=== PATIENT | female | born 1965 | race Caucasian/White ===

== ENCOUNTER 2020-10-13 11:53 | Emergency (ER) | payer BC ==
[2020-10-13 12:12] VITALS: BP 177/84; PULSE 59
--- NOTE | 2020-10-13 12:26 | EDM.PDOC ---
ED HPI GENERAL MEDICAL PROBLEM - General Chief Complaint: Cardiovascular Problem Stated Complaint: HIGH BLOOD PRESSURE SENT BY PHARMACY Time Seen by Provider: 10/13/20 12:25 Source of Information: Reports: Patient, RN, RN Notes Reviewed History Limitations: Reports: No Limitations - History of Present Illness INITIAL COMMENTS - FREE TEXT/NARRATIVE: Pt sent from pharmacy with c/o high blood pressure. Pt states she hasn't felt well for several days and has been taking Dimenhydrinate because her ears have felt plugged, and she feels postnasal drip. Admits to occasional brief pa lpitations during the past week. She denies chest pain, headache, visual changes, N/V, or cough. Onset: Gradual Duration: Day(s): (4), Constant Location: Reports: Head, Generalized Quality: Reports: Other (Denies pain) Severity: Moderate Improves with: Reports: None Worsens with: Reports: None Associated Symptoms: Reports: No Other Symptoms - Related Data Allergies Allergy/AdvReac Type Severity Reaction Status Date / Time Penicillins Allergy Difficulty Verified 10/13/20 12:12 Breathing Home Meds: Home Meds Losartan/Hydrochlorothiazide [Losartan-HCTZ 100-25 MG] 1 tab PO DAILY 12/23/14 [History] Aspirin 40.5 mg PO DAILY 10/13/20 [History] Multivitamin [Multi-Day Vitamins] 1 tab PO DAILY 10/13/20 [History] Past Medical History HEENT History: Reports: None Cardiovascular History: Reports: Hypertension Respiratory History: Reports: None Gastrointestinal History: Reports: None Genitourinary History: Reports: None LIEUTENANT/DEPUTY History: Reports: None Musculoskeletal History: Reports: RA Neurological History: Reports: None Psychiatric History: Reports: None Endocrine/Metabolic History: Reports: None Hematologic History: Reports: None Immunologic History: Reports: None Oncologic (Cancer) History: Reports: None Dermatologic History: Reports: None - Infectious Disease History Infectious Disease History: Reports: Chicken Pox, Mumps - Past Surgical History Head Surgeries/Procedures: Reports: None Female Surgical History: Reports: Hysterectomy Social & Family History - Tobacco Use Tobacco Use Status *Q: Never Tobacco User Second Hand Smoke Exposure: No - Caffeine Use Caffeine Use: Reports: Coffee - Recreational Drug Use Recreational Drug Use: No - Living Situation & Occupation Living situation: Reports: , with Family ED ROS GENERAL - Review of Systems Review Of Systems: Comprehensive ROS is negative, except as noted in HPI. ED EXAM, GENERAL - Physical Exam Exam: See Below Exam Limited By: No Limitations General Appearance: Alert, WD/WN, No Apparent Distress Eye Exam: Bilateral Eye: Normal Inspection Ears: Normal External Exam, Normal Canal, Hearing Grossly Normal, Other (TMs dull and retracted, no erythema, no perf, no drainage.) Nose: No Blood, Other (Mild inflammation of inferior turbinates and nasal mucosa) Throat/Mouth: Normal Lips, Normal Teeth, Normal Gums, Normal Voice, No Airway Compromise, Other (Clear postnasal drip) Head: Atraumatic, Normocephalic Neck: Normal Inspection, Supple, Non-Tender, Full Range of Motion. No: Lymphadenopathy (L), Lymphadenopathy (R) Respiratory/Chest: No Respiratory Distress, Lungs Clear, Normal Breath Sounds, No Accessory Muscle Use, Chest Non-Tender Cardiovascular: Normal Peripheral Pulses, Regular Rate, Rhythm, No Edema, Extra Beats Extremities: Normal Inspection, Non-Tender, No Pedal Edema Neurological: Alert, Oriented, CN II-XII Intact, Normal Cognition, Normal Gait, No Motor/Sensory Deficits Psychiatric: Normal Mood Skin Exam: Warm, Dry, Intact, Normal Color, No Rash #1 Interpretation EKG Date: 10/13/20 Time: 12:47 Rhythm: Other (SR with multiple PVCs) Rate (Beats/Min): 78 [place]: LAD-Left [place] Deviation P-Wave: Present QRS: Normal ST-T: Other (Borderline flat T waves laterally) Course - Vital Signs Last Recorded V/S: Last Vital Signs Temp 95.8 F L 10/13/20 12:03 Pulse 59 L 10/13/20 12:03 Resp 16 10/13/20 12:03 BP 177/84 H 10/13/20 12:03 Pulse Ox 100 10/13/20 12:03 - Orders/Labs/Meds Orders: Active Orders 24 hr Category Date Time Status EKG 12 Lead [EKG Documentation Completion] [RC] STAT Care 10/13/20 12:26 Active Labs: Laboratory Tests 10/13/20 10/13/20 Range/Units 12:34 12:34 WBC 7.0 (5.0-10.0) 10^3/uL RBC 4.67 (4.2-5.4) 10^6/uL Hgb 14.2 (12.0-16.0) g/dL Hct 42.2 (37.0-47.0) % MCV 90.4 (80-100) fL MCH 30.4 (27.0-34.0) pg MCHC 33.6 (33.0-35.0) g/dL Plt Count 207 (150-450) 10^3/uL Neut % (Auto) 51.1 (42.2-75.2) % Lymph % (Auto) 39.2 (20.5-50.1) % Evangeline % (Auto) 8.0 (2-8) % Eos % (Auto) 1.4 (1.0-3.0) % Baso % (Auto) 0.3 (0.0-1.0) % Sodium 137 (136-145) mmol/L Potassium 4.2 (3.5-5.1) mmol/L Chloride 98 (98-107) mmol/L Carbon Dioxide 32 (21-32) mmol/L Anion Gap 11.2 (7-13) mEq/L BUN 13 (7-18) mg/dL Creatinine 0.67 (0.55-1.02) mg/dL Est Cr Clr Drug Dosing 95.70 mL/min Estimated GFR (MDRD) > 60 BUN/Creatinine Ratio 19.4 (No establ ref range) Glucose 98 (74-99) mg/dL Calcium 9.0 (8.5-10.1) mg/dL Total Bilirubin 0.7 (0.2-1.0) mg/dL AST 14 L (15-37) U/L ALT 24 (14-59) U/L Alkaline Phosphatase 73 (46-116) U/L Total Protein 8.0 (6.4-8.2) g/dL Albumin 4.3 (3.4-5.0) g/dL Globulin 3.7 Albumin/Globulin Ratio 1.2 TSH, Ultra Sensitive 1.02 (0.36-3.74) uIU/mL Departure - Departure Time of Disposition: 13:13 Disposition: Home, Self-Care 01 Clinical Impression: Frequent PVCs, Palpitations Hypertension Qualifiers: Hypertension type: essential hypertension Qualified Code(s): I10 - Essential (primary) hypertension Eustachian tube dysfunction Qualifiers: Laterality: bilateral Qualified Code(s): H69.83 - Other specified disorders of Eustachian tube, bilateral Instructions: Premature Ventricular Contraction, Palpitations, Eustachian Tube Dysfunction, Hypertension, Adult Forms: ED Department Discharge Additional Instructions: Discontinue the over the counter medication. Follow up in clinic and discuss medication to prevent the symptomatic PVCs. Sepsis Event Note (ED) - Evaluation Sepsis Screening Result: No Definite Risk - Focused Exam Vital Signs: Vital Signs Temp Pulse Resp BP Pulse Ox 10/13/20 12:03 95.8 F L 59 L 16 177/84 H 100 - My Orders Last 24 Hours: My Active Orders 10/13/20 12:26 EKG 12 Lead [EKG Documentation Completion] [RC] STAT - Assessment/Plan Last 24 Hours: My Active Orders 10/13/20 12:26 EKG 12 Lead [EKG Documentation Completion] [RC] STAT
[2020-10-13 13:06] LABS: ANION GAP 11.2 mEq/L (7-13); CHLORIDE,CL 98 mmol/L (98-107); SODIUM,NA 137 mmol/L (136-145)
== END 2020-10-13 13:38 | disposition home or self-care (01) ==
LOC: DL.ED 11:53
DX: I10 Essential (primary) hypertension (principal); I49.3 Ventricular premature depolarization; H69.93 Unspecified Eustachian tube disorder, bilateral; M06.9 Rheumatoid arthritis, unspecified; Z79.82 Long term (current) use of aspirin; Z79.899 Other long term (current) drug therapy; Z88.0 Allergy status to penicillin
CPT/HCPCS: 36415; 80053; 84443; 85025; 93005; 93010; 99284; 99285-25